=== PATIENT | female | born 1945 | race Caucasian/White ===

== ENCOUNTER 2017-01-25 11:18 | Inpatient (IN) | payer MEDICARE ==
--- NOTE | ~2017-01-25 | DS ---
Discharge Summary [facility] [address] [place]. [address] NAME: SOPHIA GALO : 41 STATUS : DIS IN PAT#: [id number] AGE: 71 ADM/REG DATE : 01/25/17 MR#: [id number] REPORT SERV DATE: 02/14/17 DICTATED BY: JOSE SILVER DATE: 02/13/17 REPORT STATUS : Draft TRANSCRIBED BY: CRISTINO DATE: 02/13/17 Data Collection from hospitalization DISCHARGE DIAGNOSES: 1. End-stage renal disease. 2. Volume overload-resolved. 3. Hyperkalemia-resolved. 4. Chronic obstructive pulmonary disease. 5. Severe tricuspid regurgitation. 6. Insulin-dependent diabetes mellitus. 7. Hypertension. 8. Hyperlipidemia. 9. Gastroesophageal reflux disease. 10.Obstructive sleep apnea. 11.Atrial fibrillation. 12.Anxiety and depression. CONSULTATION: Dr. Dottie Zhang. PROCEDURES PERFORMED: 1. Cardioversion, 02/02/2017. 2. CTA of the chest, 01/28/2017. 3. CT scan of the liver and spleen, 01/30/2017. DISCHARGE MEDICATIONS: Tylenol 500-1000 mg every six hours as needed, ProAir two puffs via inhaler every six hours as needed, albuterol 3 mL via inhaler four times a day as needed, Cordarone 200 mg every morning, Eliquis 2.5 mg twice a day, Lipitor 40 mg at bedtime, Dulcolax 10 mg daily, Symbicort two puffs via inhaler twice a day, Bumex 2 mg every morning, Coreg 3.125 mg twice a day, NovoLog injection insulin as instructed, Lantus 10 units subcutaneously at bedtime, Levaquin 500 mg every 48 hours, Synthroid 100 mcg every morning, Amitiza 24 mcg daily as needed, Spiriva one capsule via inhaler every morning, over-the- counter vitamin E one capsule every morning. CONDITION AT DISCHARGE: Stable. DISPOSITION: The patient was discharged home on a 2100-calorie renal/diabetic diet with activities as instructed. She would follow up with Dr. Dottie Zhang, 02/09/2017. HOSPITAL COURSE: This is a 71-year-old female, who has a history of end-stage renal disease, type 2 diabetes, hypothyroidism, and COPD. She had undergone a coronary artery bypass grafting in the past. She presented with a 48-hour history of not feeling well. She said she was too weak to go to dialysis on 01/24/2017. Initial evaluation in the emergency department revealed that the patient was bradycardic with a heart rate in the 50s and systolic blood pressure in the 110s. Her potassium was 7.6 and CO2 was 16. Cardiac markers were pending. Chest x-ray showed pulmonary edema. White blood cell count was 14.8. Urinalysis was felt to be consistent with urinary tract infection. Cultures were pending. Potassium level was 7.6. She was admitted to the hospital at this time for further evaluation and treatment. Discharge Summary [address] [place]. [address] NAME: SOPHIA GALO : 43 STATUS : DIS IN PAT#: [id number] AGE: 71 ADM/REG DATE : 01/25/17 MR#: [id number] REPORT SERV DATE: 02/14/17 DICTATED BY: JOSE SILVER DATE: 02/13/17 REPORT STATUS : Draft TRANSCRIBED BY: CRISTINO DATE: 02/13/17 Upon admission, she was felt to have life-threatening hyperkalemia. The leukocytosis was felt secondary to urinary tract infection and perhaps pneumonia. Emergent hemodialysis therapy was going to be performed and a second session would be performed the following day. Nebulizers were going to be started as well as vancomycin and Levaquin. We would follow up blood and urine cultures. Echocardiogram was requested. The patient would remain in the MICU until the patient had clinical respiratory and hemodynamic improvement. The following day, white count had decreased to 10.4. She seemed to be feeling better. Hemodialysis therapy continued. Acute dyspnea improved. It was felt that she was back to baseline. CTA of the chest was performed. She was evaluated by Physical Therapy. Hemodialysis treatment continued. White count was 7.1. On 01/29/2017, she said she was sleeping better. Her shortness of breath had improved. CTA was negative for pulmonary embolus. The patient does have chronic atrial fibrillation. The patient does have severe tricuspid regurgitation. CT scan of the liver and spleen was performed. There was a 1.1 cm anterior left upper quadrant soft tissue nodule, recently noted by CT scan, which had radiotracer uptake within consistent with splenule. There were no other focal splenic lesions. Hemodialysis therapy continued. On the , the patient was seen by Dr. Dottie Zhang regarding elevated PA pressures suggested by transthoracic echocardiogram. These were not new findings. She has had this before and those records had been placed on the chart. She was lying flat. She appeared somewhat dyspneic with conversation and claimed that she was compliant with her medications, including amiodarone. It was felt that her malaise was likely due to recurrent atrial arrhythmia. She does have volume overload from noncompliance with dialysis. She had a recent negative nuclear stress test. It was felt that likely the pulmonary hypertension was present as suggested by prior echocardiogram. It was felt that she should undergo transesophageal echocardiogram and cardioversion. She agreed to proceed. On 02/02/2017, transesophageal echocardiogram and cardioversion were performed by Dr. Dottie Zhang. This was successful. This restored sinus rhythm. Amiodarone and apixaban would be continued. Dialysis therapy was performed. Discharge instructions were given. Due to her improved and stable condition, she was discharged home with the above-stated instructions. Information collected by: Wendy Butt I submit the above information as my discharge summary. TG/MODL Jose Silver M.D. / [id number] CC: Jas Morgan NATHAN [place] A [place], D.O.
--- NOTE | ~2017-01-25 | HP ---
History And Physical [address] [place]. [address] NAME: SOPHIA GALO : 43 STATUS : ADM IN [facility]#: [id number] AGE: 71 ADM/REG DATE : 01/25/17 MR#: [id number] REPORT SERV DATE: 01/25/17 DICTATED BY: JOSE MAGDALENO DATE: 01/25/17 REPORT STATUS : Draft TRANSCRIBED BY: CRISTINO DATE: 01/25/17 DATE OF ADMISSION: 01/25/2017 CHIEF COMPLAINT: Not feeling well. HISTORY OF PRESENT ILLNESS: The patient is a 71-year-old white female with significant past medical history of ESRD, CABG, type 2 diabetes, hypothyroidism, COPD, presented with a 48- hour history of just "not feeling well." She states that she was too weak to go to dialysis on 01/24/2017. Initial evaluation in the emergency department revealed the patient was bradycardic with heart rate in the 50s and systolic blood pressures in the one teens. Her potassium was 7.6 and CO2 is 16. Cardiac markers are currently pending. Chest x-ray showed pulmonary edema. White blood cell count of 14.8 with a urinalysis that could be consistent with urinary tract infection and cultures pending. Potassium 7.6. PAST MEDICAL HISTORY/PAST SURGICAL HISTORY: 1. ESRD, right upper AV fistula. Dialyzes Tuesdays, , and Saturdays at [facility]. 2. CABG. 3. Type 2 diabetes. 4. Hypothyroidism. 5. Cholecystectomy. 6. TKA. 7. Hypertension. 8. Hyperlipidemia. 9. GERD. 10.COPD. 11.ARVIND. 12.Atrial fibrillation. SOCIAL HISTORY: Lives in [place]. No recreational drugs or alcohol. FAMILY MEDICAL HISTORY: No known kidney disease. ALLERGIES: AMOXICILLIN. HOME MEDICATIONS: 1. Amiodarone 200 mg daily. 2. Eliquis 2.5 mg p.o. b.i.d. 3. Lipitor 40 mg p.o. q.h.s. 4. Budesonide and formoterol 160/4.5 daily. 5. Bumex 2 mg b.i.d. 6. Coreg 12.5 mg p.o. b.i.d. 7. Insulin. 8. ISMN 30 mg daily. 9. Levothyroxine 100 mcg daily. 10.Lisinopril 10 mg daily. History And Physical [address] [address] NAME: SOPHIA GALO : 43 STATUS : ADM IN PAT#: [id number] AGE: 71 ADM/REG DATE : 01/25/17 MR#: [id number] REPORT SERV DATE: 01/25/17 DICTATED BY: JOSE MAGDALENO DATE: 01/25/17 REPORT STATUS : Draft TRANSCRIBED BY: CRISTINO DATE: 01/25/17 11.Robaxin 500 mg b.i.d. 12.Protonix 40 mg daily. 13.Renvela g packets t.i.d. 14.Tiotropium 18 mcg daily. REVIEW OF SYSTEMS: Complete review of systems done negative, otherwise stated in the HPI. PHYSICAL EXAMINATION: VITAL SIGNS: Temperature is 96.5, pulse is 54, blood pressure is 110/31. GENERAL: She is in increased respiratory distress with generalized weakness, failure to thrive. SKIN: No petechiae, purpura, or rash. HEENT: Normocephalic. No nystagmus. Moist mucous membranes. NECK: No JVD. Trachea midline. CARDIOVASCULAR: Regular rate and rhythm. No gallops, rubs, or murmurs. RESPIRATORY: Clear to auscultation bilaterally. ABDOMEN: Soft, nontender, nondistended. Positive bowel sounds. EXTREMITIES: No peripheral edema. LABORATORY DATA: Sodium is 130, potassium is 7.6, chloride is 93, CO2 is 16, BUN is 97, creatinine is 9.55, glucose is 179. Calcium 7.9, albumin 3.2, alkaline phosphatase 122. White blood cell count is 14.8, hemoglobin is 13.6, platelets are 257. INR is 1.9. Chest x-ray: Pulmonary edema. ASSESSMENT: 1. Dyspnea/hypoxia with increased volume overload with pulmonary edema with past medical history of chronic obstructive pulmonary disease and obstructive sleep apnea. 2. Life-threatening hyperkalemia. 3. Leukocytosis secondary to urinary tract infection and perhaps pneumonia. 4. CABG. 5. Type 2 diabetes. 6. Atrial fibrillation. PLAN: 1. Emergent hemodialysis today then second session tomorrow. 2. Nebulizers. 3. Vancomycin and Levaquin. 4. Follow up blood and urine cultures. 5. Echocardiogram. 6. Telemetry, EKG, and cardiac markers. 7. Continue home and p.r.n. medications. MICU environment until the patient has clinical respiratory and hemodynamic improvement. History And Physical [address] [place]. [address] NAME: SOPHIA GALO : 43 STATUS : ADM IN [facility]#: [id number] AGE: 71 ADM/REG DATE : 01/25/17 MR#: [id number] REPORT SERV DATE: 01/25/17 DICTATED BY: JOSE MAGDALENO DATE: 01/25/17 REPORT STATUS : Draft TRANSCRIBED BY: CRISTINO DATE: 01/25/17 JL/CRISTINO Jose Magdaleno M.D. / [id number] CC: Jas Morgan NATHAN
--- NOTE | ~2017-01-25 | CN ---
Consultation Report [facility] [address] [place]. [address] NAME: SOPHIA GALO : 43 STATUS : DIS IN PAT#: [id number] AGE: 71 ADM/REG DATE : 01/25/17 MR#: [id number] REPORT SERV DATE: 02/03/17 DICTATED BY: DOTTIE ZHANG DATE: 02/02/17 REPORT STATUS : Draft TRANSCRIBED BY: CRISTINO DATE: 02/02/17 CARDIOLOGY CONSULTATION DATE OF CONSULTATION: REASON: Elevated PA pressures suggested by transthoracic echocardiogram. A 71-year-old patient who I have known for several years with coronary artery disease, end- stage renal disease on dialysis, and a bit of noncompliance, which usually winds up with her being hospitalized for volume overload say at least. At any rate, she claims that she was not feeling well for several days prior to admission. Actually missed one or two dialysis sessions. Finally was admitted to Dr. Anderson's service. An echocardiogram was performed and suggested severely elevated PA pressures. This is not a new findings, she has had this before and those records have been placed on the chart. She is lying flat. She appears somewhat dyspneic with conversation and claims that she is compliant with her medications, including amiodarone. She was seen in the office recently by my nurse practitioner. No changes were made at that time. She is hoping to be discharged home soon. Transthoracic echo performed on 01/27/2017, revealed normal left ventricular size and function, normal left atrial size, diastolic CHF with volume overload, suggested several PA systolic pressures above 70. She has had prior transthoracic echo suggesting PA pressures greater than 90. PAST MEDICAL HISTORY: Includes: 1. Coronary artery disease, prior multivessel bypass by Dr. Mcnamara. 2. Paroxysmal atrial fibrillation and flutter with RVR. Previously controlled with Multaq, later changed to amiodarone due to end-stage renal disease development. She has a CHADS2 score of at least 4. 3. End-stage renal disease, on dialysis with AV fistula. 4. Hyperlipidemia. 5. Diabetes mellitus. 6. Obesity. 7. Anxiety and depression. 8. Sleep apnea on CPAP. 9. Left arm AV fistula previously which had to be removed due to infection. 10.Gait abnormality following hip fracture. The patient usually uses a walker or wheelchair. SURGICAL HISTORY: 1. CABG 2009 with maze procedure. 2. Fistula repair, 01/2013. 3. Graft removal from her left arm 10/2012. 4. Right hip Gamma Nail with Dr. Mullins. Consultation Report [facility] [address] [place]. [address] NAME: SOPHIA GALO : 41 STATUS : DIS IN PAT#: [id number] AGE: 71 ADM/REG DATE : 01/25/17 MR#: [id number] REPORT SERV DATE: 02/03/17 DICTATED BY: DOTTIE ZHANG DATE: 02/02/17 REPORT STATUS : Draft TRANSCRIBED BY: CRISTINO DATE: 02/02/17 FAMILY HISTORY: Noncontributory. SOCIAL HISTORY: Lives with one of her granddaughters and denies tobacco use. She drinks coffee. No illicit drugs. ALLERGIES: NONE KNOWN. PRIOR HOSPITALIZATIONS: She has had multiple hospitalizations. Most alarming was in September 2013, showed cardiopulmonary arrest requiring CPR and acute respiratory failure. She has also had noncompliance with dialysis resulting in the same, 2015. HOME MEDICINES: Listed as Coreg 6.25 b.i.d. except on dialysis days. She will hold her morning dose of Ventolin, glucose polymer liquid, Humalog, Prinivil 10, Spiriva HandiHaler, methocarbamol, Symbicort, Eliquis 2.5 b.i.d., Lipitor 40, amiodarone 200 daily, Bumex 2 mg daily, Lipitor 40 daily, Imdur 30 mg, Coreg 6.25 as listed above. Vital signs have been reviewed. Chart has been reviewed. It appears that the patient presented with evidence of atrial fibrillation, which I believe led to her decompensation and required hospitalization. PHYSICAL EXAMINATION: GENERAL: Pleasant, no distress. HEENT: Unremarkable, no meningismus. NECK: Supple. LUNGS: Relatively clear. HEART: Sounds are mildly irregular. No loud murmurs. ABDOMEN: Soft. EXTREMITIES: No edema. Right arm bruise from use of the AV fistula, I believe. IMPRESSION: 1. Malaise generally speaking likely due to recurrent atrial arrhythmia. 2. Volume overload from noncompliance with dialysis. 3. Coronary artery disease, no chest pain. 4. Recent negative nuclear stress test. 5. Likely pulmonary hypertension is present as suggested by prior echocardiograms. I do not believe she has had a right heart catheterization. PLAN: Discussed benefits of some OWEN cardioversion and she agrees to proceed. We will schedule for tomorrow morning. Therefore, this can be followed by dialysis and she could be discharged home if desired. I discussed this with Dr. Anderson as well. Thank you for allowing to participate in her care. Consultation Report [facility] [id number] [place]. [address] NAME: SOPHIA GALO : 43 STATUS : DIS IN PAT#: [id number] AGE: 71 ADM/REG DATE : 01/25/17 MR#: [id number] REPORT SERV DATE: 02/03/17 DICTATED BY: DOTTIE ZHANG. DATE: 02/02/17 REPORT STATUS : Draft TRANSCRIBED BY: CRISTINO DATE: 02/02/17 TIMOTHY/CRISTINO Dottie Zhang D.O. / [id number] CC: Jas Morgan NATHAN
--- NOTE | ~2017-01-25 | TEE ---
Transesophageal Echocardiogram [facility] [address] [place]. [address] NAME: SOPHIA GALO : 43 STATUS : ADM IN PAT#: [id number] AGE: 71 ADM/REG DATE : 01/25/17 MR#: [id number] REPORT SERV DATE: 02/02/17 DICTATED BY: DOTTIE ZHANG DATE: 02/02/17 REPORT STATUS : Draft TRANSCRIBED BY: CRISTINO DATE: 02/02/17 INDICATION: Atrial fibrillation, pre-cardioversion, rule out intracardiac thrombus. LOCATION: Short stay. NURSE: Krista. CLIENT RESOURCE SPECIALIST: Ángela. BUSINESS SYSTEMS ADVISOR: Dottie Zhang D.O. CONSENT: From patient. ANESTHESIA: By [facility], Dr. Milton. COMPLICATIONS: None. The patient is on amiodarone 200 mg daily and also takes apixaban 2.5 b.i.d. EKG confirms the presence of atrial fibrillation with controlled ventricular rate. PROCEDURE DESCRIPTION: The patient was under continuous monitoring of blood pressure, EKG, telemetry, and O2 saturation. A time-out was called. A padded bite block was inserted. She did have an IV in the left hand which was somewhat positional, but she was given IV propofol by [facility] and intravenous lidocaine. The esophagus was easily intubated with the Omniplane OWEN probe and limited but very good images were obtained due to the patient's respiratory status, the study was abridged. Following completion of the OWEN, a successful cardioversion was performed restoring sinus rhythm. FINDINGS: Ventricles: 1. Concentric left hypertrophy. Normal systolic function. 2. Right heart chamber is not well seen. 3. Intraatrial septum is intact, no evidence of atrial septal defect or PFO by color Doppler or 2D imaging. 4. 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 Left superior pulmonary vein was observed. No spontaneous echo contrast, thrombi, mass, or vegetation was seen in the left atrial appendage or the left atrium. The test was then aborted as the patient was observed to have desaturation. She was otherwise stable and completed the remainder of the procedure well. CONCLUSION: NO INTRACARDIAC THROMBUS, MASS, OR VEGETATION. PLAN: Proceed with cardioversion. Transesophageal Echocardiogram [facility] [address] [place]. [address] NAME: SOPHIA GALO : 43 STATUS : ADM IN PAT#: [id number] AGE: 71 ADM/REG DATE : 01/25/17 MR#: [id number] REPORT SERV DATE: 02/02/17 DICTATED BY: DOTTIE ZHANG. DATE: 02/02/17 REPORT STATUS : Draft TRANSCRIBED BY: CRISTINO DATE: 02/02/17 SAT/CRISTINO Dottie Zhang D.O. / [id number] CC: Jas Morgan
--- NOTE | ~2017-01-25 | OP ---
Record Of Operation [facility] [address] [place]. [address] NAME: SOPHIA GALO : 41 STATUS : ADM IN [facility]#: [id number] AGE: 71 ADM/REG DATE : 01/25/17 MR#: [id number] REPORT SERV DATE: 02/02/17 DICTATED BY: DOTTIE ZHANG DATE: 02/02/17 REPORT STATUS : Draft TRANSCRIBED BY: CRISTINO DATE: 02/02/17 DATE OF PROCEDURE: 02/02/2017 PROCEDURE: Cardioversion. LOCATION: Short Stay. ANESTHESIA: By [facility], Dr. Milton. INDICATION: Symptomatic atrial fibrillation. BRIEF HISTORY: This is a 71-year-old with prior CAD, CABG, left atrial maze, on amiodarone therapy, who presents to the hospital with malaise and volume overload, atrial fibrillation is recurrent. She is on apixaban as well. PROCEDURE DESCRIPTION: After a time-out was called and completion of the OWEN, a single 100- joule synchronized shock was delivered promptly restoring sinus rhythm. The patient was hemodynamically stable and recovered uneventfully in the short stay unit. IMPRESSION: Successful cardioversion. PLAN: 1. Continue amiodarone and apixaban. 2. Dialysis today. 3. Outpatient followup. TIMOTHY/CRISTINO Dottie Zhang D.O. / [id number] CC: Jas Morgan NATHAN
[2017-01-25 10:43] LABS: BASOPHILS 0.2 %; BASOPHILS ABSOLUTE 0.03 10/3/uL (0.0-0.16); EOSINOPHILS 0.1 %; EOSINOPHILS ABSOLUTE 0.01 10/3/uL (0.0-0.53); ER CBC TAT 0 Hrs 07 Mins; HEMATOCRIT 43.7 % (36.0-48.0); HEMOGLOBIN 13.6 g/dL (12.0-16.0); IMMATURE GRANULOCYTES 0.4 %; IMMATURE GRANULOCYTES ABSOLUTE 0.06 10/3/uL (0.0-0.11); LYMPHOCYTES ABSOLUTE 1.62 10/3/uL (0.67-4.30); MANUAL DIFF NO %; MEAN CORPUS HGB CONC 31.1 g/dL (32.0-36.0); MEAN CORPUSCULAR HEMOGLOB 30.2 pg (26.0-34.0); MEAN CORPUSCULAR VOLUME 96.9 fL (80-100); MEAN PLATELET VOLUME 11.3 fL (9.2-13.0); MONOCYTES 11.6 %; MONOCYTES ABSOLUTE 1.71 10/3/uL (0.21-1.20); NEUTROPHILS 76.7 %; NEUTROPHILS ABSOLUTE 11.36 10/3/uL (2.02-8.40); PLATELET COUNT 257 10/3/uL (150-400); RBC DISTRIBUTION WIDTH 16.4 % (12.0-16.0); RED CELL COUNT 4.51 10/6/uL (4.0-5.6); WHITE BLOOD CELLS 14.8 10/3/uL (4.5-10.5)
[2017-01-25 10:50] LABS: INTERNATIONAL NORMAL RATI 1.9 UNITS (-); PARTIAL THROMBO TIME 35.2 SEC (22.5-37.2); PROTIME (NOT ORD) 21.4 SEC (12.0-14.5)
[2017-01-25 10:52] LABS: ALLENS TEST Pos; CARBOXYHEMOGLOBIN 2.2 % (0-3); DEVICE TM; HCO3 (ACTUAL BICARBONATE) 15.8 MEQ/L (23-27); HEMOBLOGIN CONTENT 14.2 G/DL (12-16); INSTRUMENT SERIAL # 8087; METHEMOGLOBIN 0.2 % (0-3); O2 CONTENT 17.8 VOL% (18-24); OPERATOR ID 14904~00; PCO2 (CO2 TENSION) 16 MMHG (35-45); PO2 (O2 TENSION) 15 MMHG (79-93); SAMPLE Arterial; pH 7.45 (7.37-7.43)
[2017-01-25 11:05] LABS: LACTATE 1.8 MMOL/L (0.3-2.4)
[2017-01-25 11:33] LABS: ASCORBIC ACID (UR NOT ORDER) NEG (NEG); BILIRUBIN, URINE NEGATIVE (NEG); ER URINALYSIS TAT 0 Hrs 14 Mins; KETONE, URINE NEGATIVE (NEG); LEUKOCYTE ESTERASE(NOT OR LARGE (NEG); NITRITE (URINE) NEG (NEG); WBC (NOT ORDERED) (RFLEX) > 182 (0-5)
[2017-01-25 11:38] LABS: SODIUM, SERUM 130 MMOL/L (135-148)
[2017-01-25 11:54] LABS: POTASSIUM, SERUM 7.6 MMOL/L (3.5-5.3)
[2017-01-25 12:06] LABS: BUN (BLOOD UREA NITROGEN) 97 MG/DL (6-23); CALCIUM, SERUM 7.9 MG/DL (8.5-10.4); CHLORIDE, SERUM 93 MMOL/L (96-112); CO2 (CARBON DIOXIDE) 16 MMOL/L (24-34); CREATININE 9.55 MG/DL (0.55-1.02); GFR AFRICAN AMERICAN 4 ML/MIN (>=60); GFR NON AFRICAN AMERICAN 4 ML/MIN (>=60); GLUCOSE, SERUM 179 MG/DL (60-99); TOTAL PROTEIN 8.1 G/DL (6.0-8.5)
[2017-01-25 12:07] LABS: A/G RATIO 0.7 (0.7-1.9); ALBUMIN 3.2 G/DL (3.5-5.0); ALKALINE PHOSPHATASE 122 U/L (45-117); GLOBULIN 4.9 G/DL (2.5-4.1); SGPT(ALT) 34 U/L (5-65); TOTAL BILIRUBIN 0.8 MG/DL (0-1.2)
[2017-01-25 12:08] LABS: SGOT(AST) 38 U/L (5-40)
[2017-01-25 12:09] LABS: PROCALCITONIN 1.04 ng/mL (<0.5)
[2017-01-25] MEDS ORDERED: COREG3 PO (17:53)
[2017-01-25] MEDS ORDERED: SPIRIVA INH (17:54)
[2017-01-25] MEDS ORDERED: CORDARONE PO (17:54)
[2017-01-25] MEDS ORDERED: DIALYSIS IV (17:54)
[2017-01-25] MEDS ORDERED: LIPITOR40 PO (17:55)
[2017-01-25] MEDS ORDERED: ACET500CAP PO (17:55)
[2017-01-25] MEDS ORDERED: BUM2 PO (17:55)
[2017-01-25] MEDS ORDERED: SYN1 PO (17:55)
[2017-01-25] MEDS ORDERED: AMITIZA24 PO (17:56)
[2017-01-25] MEDS ORDERED: IMDUR30 PO (17:56)
[2017-01-25] MEDS ORDERED: OTC VITAMIN E PO (17:56)
[2017-01-25] MEDS ORDERED: LANTUS SC (18:00)
[2017-01-25] MEDS ORDERED: ALBUTEROL0.083 % INH (18:01)
[2017-01-25] MEDS ORDERED: NOVOLOG SC (18:01)
[2017-01-25] MEDS ORDERED: PROAIR HFA INH (18:01)
[2017-01-25] MEDS ORDERED: SYMBICORT 160/41 INH INH (18:01)
[2017-01-25] MEDS ORDERED: ELIQUIS 2.5 MG2.5 MG PO (18:10)
[2017-01-26 05:26] LABS: BASOPHILS 0.3 %; BASOPHILS ABSOLUTE 0.03 10/3/uL (0.0-0.16); EOSINOPHILS 0.9 %; EOSINOPHILS ABSOLUTE 0.09 10/3/uL (0.0-0.53); HEMOGLOBIN 11.4 g/dL (12.0-16.0); IMMATURE GRANULOCYTES 0.4 %; IMMATURE GRANULOCYTES ABSOLUTE 0.04 10/3/uL (0.0-0.11); LYMPHOCYTES 17.1 %; LYMPHOCYTES ABSOLUTE 1.77 10/3/uL (0.67-4.30); MEAN CORPUS HGB CONC 30.2 g/dL (32.0-36.0); MEAN CORPUSCULAR HEMOGLOB 29.6 pg (26.0-34.0); MEAN CORPUSCULAR VOLUME 98.2 fL (80-100); MEAN PLATELET VOLUME 10.8 fL (9.2-13.0); MONOCYTES 13.6 %; MONOCYTES ABSOLUTE 1.41 10/3/uL (0.21-1.20); NEUTROPHILS 67.7 %; NEUTROPHILS ABSOLUTE 7.04 10/3/uL (2.02-8.40); PLATELET COUNT 214 10/3/uL (150-400); RBC DISTRIBUTION WIDTH 16.6 % (12.0-16.0); RED CELL COUNT 3.85 10/6/uL (4.0-5.6); WHITE BLOOD CELLS 10.4 10/3/uL (4.5-10.5)
[2017-01-26 05:28] LABS: HEMATOCRIT 37.8 % (36.0-48.0); MANUAL DIFF NO %
[2017-01-26 05:34] LABS: CALCIUM, SERUM 8.3 MG/DL (8.5-10.4); CHLORIDE, SERUM 101 MMOL/L (96-112); CPK 18 U/L (0-200); GLUCOSE, SERUM 145 MG/DL (60-99)
[2017-01-26 05:41] LABS: BUN (BLOOD UREA NITROGEN) 52 MG/DL (6-23); CK-MB 1.2 NG/ML; CO2 (CARBON DIOXIDE) 25 MMOL/L (24-34); CREATININE 6.65 MG/DL (0.55-1.02); GFR AFRICAN AMERICAN 7 ML/MIN (>=60); GFR NON AFRICAN AMERICAN 6 ML/MIN (>=60); PHOSPHORUS, SERUM 6.4 MG/DL (2.5-4.5); POTASSIUM, SERUM 5.7 MMOL/L (3.5-5.3); SODIUM, SERUM 139 MMOL/L (135-148)
[2017-01-26 14:35] LABS: TROPONIN I 0.03 NG/ML (<0.05)
[2017-01-27 05:35] LABS: BASOPHILS 0.5 %; BASOPHILS ABSOLUTE 0.04 10/3/uL (0.0-0.16); EOSINOPHILS 1.5 %; EOSINOPHILS ABSOLUTE 0.13 10/3/uL (0.0-0.53); HEMATOCRIT 38.2 % (36.0-48.0); HEMOGLOBIN 11.3 g/dL (12.0-16.0); IMMATURE GRANULOCYTES 0.3 %; IMMATURE GRANULOCYTES ABSOLUTE 0.03 10/3/uL (0.0-0.11); LYMPHOCYTES 19.6 %; LYMPHOCYTES ABSOLUTE 1.74 10/3/uL (0.67-4.30); MEAN CORPUS HGB CONC 29.6 g/dL (32.0-36.0); MEAN CORPUSCULAR HEMOGLOB 29.8 pg (26.0-34.0); MEAN CORPUSCULAR VOLUME 100.8 fL (80-100); MEAN PLATELET VOLUME 10.6 fL (9.2-13.0); MONOCYTES 15.2 %; MONOCYTES ABSOLUTE 1.35 10/3/uL (0.21-1.20); NEUTROPHILS 62.9 %; NEUTROPHILS ABSOLUTE 5.57 10/3/uL (2.02-8.40); PLATELET COUNT 202 10/3/uL (150-400); RBC DISTRIBUTION WIDTH 16.7 % (12.0-16.0); RED CELL COUNT 3.79 10/6/uL (4.0-5.6); WHITE BLOOD CELLS 8.9 10/3/uL (4.5-10.5)
[2017-01-27 05:45] LABS: ALBUMIN 3.1 G/DL (3.5-5.0); CALCIUM, SERUM 7.7 MG/DL (8.5-10.4); CHLORIDE, SERUM 102 MMOL/L (96-112); CO2 (CARBON DIOXIDE) 24 MMOL/L (24-34); GLUCOSE, SERUM 161 MG/DL (60-99); POTASSIUM, SERUM 4.9 MMOL/L (3.5-5.3); SODIUM, SERUM 139 MMOL/L (135-148)
[2017-01-27 05:46] LABS: MANUAL DIFF NO %
[2017-01-27 05:50] LABS: BUN (BLOOD UREA NITROGEN) 34 MG/DL (6-23); CREATININE 5.05 MG/DL (0.55-1.02); GFR AFRICAN AMERICAN 9 ML/MIN (>=60); GFR NON AFRICAN AMERICAN 8 ML/MIN (>=60); PHOSPHORUS, SERUM 5.1 MG/DL (2.5-4.5)
[2017-01-28 12:34] LABS: BASOPHILS 0 %; EOSINOPHILS 0 %; HEMATOCRIT 38.8 % (36.0-48.0); HEMOGLOBIN 11.9 g/dL (12.0-16.0); IMMATURE GRANULOCYTES 0.4 %; IMMATURE GRANULOCYTES ABSOLUTE 0.03 10/3/uL (0.0-0.11); LYMPHOCYTES 7.6 %; LYMPHOCYTES ABSOLUTE 0.54 10/3/uL (0.67-4.30); MANUAL DIFF NO %; MEAN CORPUS HGB CONC 30.7 g/dL (32.0-36.0); MEAN CORPUSCULAR HEMOGLOB 30.1 pg (26.0-34.0); MEAN PLATELET VOLUME 10.3 fL (9.2-13.0); MONOCYTES 4.1 %; MONOCYTES ABSOLUTE 0.29 10/3/uL (0.21-1.20); NEUTROPHILS 87.9 %; NEUTROPHILS ABSOLUTE 6.27 10/3/uL (2.02-8.40); PLATELET COUNT 186 10/3/uL (150-400); RBC DISTRIBUTION WIDTH 16.4 % (12.0-16.0); RED CELL COUNT 3.96 10/6/uL (4.0-5.6); WHITE BLOOD CELLS 7.1 10/3/uL (4.5-10.5)
[2017-01-28 12:52] LABS: ALBUMIN 3.3 G/DL (3.5-5.0); CALCIUM, SERUM 7.6 MG/DL (8.5-10.4); CHLORIDE, SERUM 94 MMOL/L (96-112); CO2 (CARBON DIOXIDE) 22 MMOL/L (24-34); POTASSIUM, SERUM 5.8 MMOL/L (3.5-5.3)
[2017-01-28 12:54] LABS: BUN (BLOOD UREA NITROGEN) 57 MG/DL (6-23); SODIUM, SERUM 131 MMOL/L (135-148)
[2017-01-28 12:55] LABS: CREATININE 6.61 MG/DL (0.55-1.02); GFR AFRICAN AMERICAN 7 ML/MIN (>=60); GFR NON AFRICAN AMERICAN 6 ML/MIN (>=60); GLUCOSE, SERUM 270 MG/DL (60-99); PHOSPHORUS, SERUM 6.6 MG/DL (2.5-4.5)
[2017-01-31 16:39] LABS: ALBUMIN 3.1 G/DL (3.5-5.0); CALCIUM, SERUM 7.2 MG/DL (8.5-10.4); CHLORIDE, SERUM 94 MMOL/L (96-112); CO2 (CARBON DIOXIDE) 18 MMOL/L (24-34); PHOSPHORUS, SERUM 7.5 MG/DL (2.5-4.5); SODIUM, SERUM 130 MMOL/L (135-148)
[2017-01-31 16:40] LABS: BASOPHILS 0.2 %; BASOPHILS ABSOLUTE 0.02 10/3/uL (0.0-0.16); BUN (BLOOD UREA NITROGEN) 81 MG/DL (6-23); CREATININE 7.71 MG/DL (0.55-1.02); EOSINOPHILS 1.5 %; EOSINOPHILS ABSOLUTE 0.18 10/3/uL (0.0-0.53); GFR AFRICAN AMERICAN 5 ML/MIN (>=60); GFR NON AFRICAN AMERICAN 5 ML/MIN (>=60); GLUCOSE, SERUM 143 MG/DL (60-99); HEMATOCRIT 37.5 % (36.0-48.0); IMMATURE GRANULOCYTES 0.3 %; IMMATURE GRANULOCYTES ABSOLUTE 0.04 10/3/uL (0.0-0.11); LYMPHOCYTES 13.7 %; LYMPHOCYTES ABSOLUTE 1.62 10/3/uL (0.67-4.30); MANUAL DIFF NO %; MEAN CORPUSCULAR HEMOGLOB 30.2 pg (26.0-34.0); MEAN CORPUSCULAR VOLUME 94.2 fL (80-100); MONOCYTES 9.7 %; MONOCYTES ABSOLUTE 1.15 10/3/uL (0.21-1.20); NEUTROPHILS 74.6 %; NEUTROPHILS ABSOLUTE 8.79 10/3/uL (2.02-8.40); PLATELET COUNT 161 10/3/uL (150-400); RBC DISTRIBUTION WIDTH 16.4 % (12.0-16.0); RED CELL COUNT 3.98 10/6/uL (4.0-5.6); WHITE BLOOD CELLS 11.8 10/3/uL (4.5-10.5)
[2017-02-02 08:10] LABS: BASOPHILS 0.2 %; BASOPHILS ABSOLUTE 0.02 10/3/uL (0.0-0.16); EOSINOPHILS 1.6 %; EOSINOPHILS ABSOLUTE 0.16 10/3/uL (0.0-0.53); HEMATOCRIT 36.2 % (36.0-48.0); HEMOGLOBIN 11.4 g/dL (12.0-16.0); IMMATURE GRANULOCYTES 0.6 %; IMMATURE GRANULOCYTES ABSOLUTE 0.06 10/3/uL (0.0-0.11); LYMPHOCYTES 19.3 %; LYMPHOCYTES ABSOLUTE 1.99 10/3/uL (0.67-4.30); MEAN CORPUS HGB CONC 31.5 g/dL (32.0-36.0); MEAN CORPUSCULAR HEMOGLOB 29.9 pg (26.0-34.0); MEAN PLATELET VOLUME 10.9 fL (9.2-13.0); MONOCYTES 12.8 %; MONOCYTES ABSOLUTE 1.32 10/3/uL (0.21-1.20); NEUTROPHILS 65.5 %; NEUTROPHILS ABSOLUTE 6.77 10/3/uL (2.02-8.40); PLATELET COUNT 143 10/3/uL (150-400); RBC DISTRIBUTION WIDTH 16.6 % (12.0-16.0); RED CELL COUNT 3.81 10/6/uL (4.0-5.6); WHITE BLOOD CELLS 10.3 10/3/uL (4.5-10.5)
[2017-02-02 08:20] LABS: MANUAL DIFF NO %
[2017-02-02 08:27] LABS: ALBUMIN 3.5 G/DL (3.5-5.0); BUN (BLOOD UREA NITROGEN) 78 MG/DL (6-23); CALCIUM, SERUM 7.7 MG/DL (8.5-10.4); CHLORIDE, SERUM 97 MMOL/L (96-112); CO2 (CARBON DIOXIDE) 19 MMOL/L (24-34); CREATININE 7.39 MG/DL (0.55-1.02); GFR AFRICAN AMERICAN 6 ML/MIN (>=60); GFR NON AFRICAN AMERICAN 5 ML/MIN (>=60); GLUCOSE, SERUM 137 MG/DL (60-99); POTASSIUM, SERUM 5.3 MMOL/L (3.5-5.3); SODIUM, SERUM 133 MMOL/L (135-148)
[2017-02-02 08:28] LABS: PHOSPHORUS, SERUM 6.4 MG/DL (2.5-4.5)
[2017-02-02] MEDS ORDERED: BIST PO (13:34)
[2017-02-02] MEDS ORDERED: LEVAQUIN5T PO (13:35)
== END 2017-02-02 21:12 | disposition home or self-care (01) | DRG 291 ==
LOC: ER 11:18 → MIC 12:13 → 2SO 01-26 17:08
PROVIDERS: Hospitalist; Internal Medicine Nephrology; Nurse Practitioner; Registered Nurse
PROC: 5A2204Z Restoration of Cardiac Rhythm, Single (ICD-10-PCS; principal; 2017-01-25)
PROC: B246ZZ4 Ultrasonography of Right and Left Heart, Transesophageal (ICD-10-PCS; 2017-01-25)
PROC: 5A09457 Assistance with Respiratory Ventilation, 24-96 Consecutive Hours, Continuous Positive Airway Pressure (ICD-10-PCS; 2017-01-25)
PROC: 5A1D60Z (ICD-10-PCS; 2017-01-25)
DX: I13.2 Hypertensive heart and chronic kidney disease with heart failure and with stage 5 chronic kidney disease, or end stage renal disease (principal); N18.6 End stage renal disease; E87.2 Acidosis; E11.22 Type 2 diabetes mellitus with diabetic chronic kidney disease; I27.2 Other secondary pulmonary hypertension; I50.32 Chronic diastolic (congestive) heart failure; N39.0 Urinary tract infection, site not specified; I48.0 Paroxysmal atrial fibrillation; I36.1 Nonrheumatic tricuspid (valve) insufficiency; E87.5 Hyperkalemia; I25.10 Atherosclerotic heart disease of native coronary artery without angina pectoris; J44.9 Chronic obstructive pulmonary disease, unspecified; G47.33 Obstructive sleep apnea (adult) (pediatric); E03.9 Hypothyroidism, unspecified; E78.5 Hyperlipidemia, unspecified; F41.9 Anxiety disorder, unspecified; F32.9 Major depressive disorder, single episode, unspecified; K21.9 Gastro-esophageal reflux disease without esophagitis; E66.9 Obesity, unspecified; Z99.2 Dependence on renal dialysis; Z88.1 Allergy status to other antibiotic agents; Z95.1 Presence of aortocoronary bypass graft; Z91.15 Patient's noncompliance with renal dialysis; Z98.890 Other specified postprocedural states
CPT/HCPCS: 36600; 71010; 71020; 71275; 78215; 80053; 80069; 80202; 81001; 82550; 82553; 82805; 82962; 83605; 83735; 84145; 84484; 85025; 85610; 85730; 87040; 87086; 87641; 92960; 93005; 93306; 93312; 93320; 93325; 94640; 94660; 96374; 97161-GP; 99291; A9270-GY; A9541; G0257; G8978-CH-GP; G8979-CH-GP; G8980-CH-GP; J0456; J0610; J1956; J2920; J3370; P9047; Q9967